=== PATIENT | male | born 2000 | race Caucasian/White ===

== ENCOUNTER 2023-12-09 07:13 | Emergency (ER) | payer OTHER ==
[2023-12-09 07:31] VITALS: BP 154/91; PULSE 113; RESP 18; TEMP 98.2; BMI 28.0
== END 2023-12-09 09:38 | disposition home or self-care (01) ==
LOC: JER 07:13
DX: R05.9 Cough, unspecified (principal); R09.81 Nasal congestion; R00.0 Tachycardia, unspecified; J06.9 Acute upper respiratory infection, unspecified; Z20.822 Contact with and (suspected) exposure to COVID-19
CPT/HCPCS: 0241U-QW; 71046-TC-FY; 99283-25